=== PATIENT | female | born 1940 | race Caucasian/White ===

== ENCOUNTER 2016-10-29 20:19 | Inpatient (IN) | payer MEDICARE, BC ==
--- NOTE | ~2016-10-29 | EGD ---
EGD REPORT [facility] [address] [place] [address] NAME: RADHA BARRON : [birth year] STATUS : ADM IN PAT#: [id number] AGE: 76 ADM/REG DATE : 10/30/16 MR#: [id number] REPORT SERV DATE: 11/02/16 DICTATED BY: MILLICENT GUTHRIE DATE: 11/02/16 REPORT STATUS : Draft TRANSCRIBED BY: [employer] DATE: 11/02/16 [facility] Center Patient Name: Radha Barron Date of : 1940 Attending MD: MILLICENT GUTHRIE, Procedure Date No Time: 11/02/2016 Procedure: Colonoscopy Indications: This is the patient's first colonoscopy, Abnormal CT of the GI tract Medicines: Propofol per Anesthesia Complications: No immediate complications. Estimated blood loss: None. Procedure: Pre-Anesthesia Assessment: - ASA Grade Assessment: III - A patient with severe systemic disease. After I obtained informed consent, the scope was passed under direct vision. Throughout the procedure, the patient's blood pressure, pulse, and oxygen saturations were monitored continuously. The PCF H190L [id number] was introduced through the anus and advanced to the terminal ileum. The colonoscopy was performed with ease. The patient tolerated the procedure well. The quality of the bowel preparation was good. Findings: The perianal exam was abnormal. Findings include skin tags. The terminal ileum appeared normal. Three polyps were found in the ascending colon. The polyps were 3 mm in size. These polyps were removed with a cold biopsy forceps. Resection and retrieval were complete. Estimated blood loss: none. A fungating non-obstructing large mass was found in the ascending colon. The mass was partially circumferential (involving one-half of the lumen circumference). The mass measured four cm in length. No bleeding was present. Biopsies were taken with a cold forceps for histology. Estimated blood loss was minimal. Area was successfully injected with 4 mL Spot (carbon black) for tattooing. Estimated blood loss: none. A sessile polyp was found in the sigmoid colon. The polyp was 5 mm in size. The polyp was removed with a cold snare. Resection and retrieval were complete. Estimated blood loss: none. Severe diffuse melanosis was found in the entire colon. Impression: - Perianal skin tags found on perianal exam. - The examined portion of the ileum was normal. - Three 3 mm polyps in the ascending colon. Resected and retrieved. - Likely malignant tumor in the ascending colon. EGD REPORT [address] [place]. [address] NAME: RADHA BARRON : [birth year] STATUS : ADM IN [facility]#: [id number] AGE: 76 ADM/REG DATE : 10/30/16 MR#: [id number] REPORT SERV DATE: 11/02/16 DICTATED BY: MILLICENT GUTHRIE DATE: 11/02/16 REPORT STATUS : Draft TRANSCRIBED BY: Flux DATE: 11/02/16 Biopsied. Biopsied. Injected. - One 5 mm polyp in the sigmoid colon. Resected and retrieved. - Melanosis in the colon. Recommendation: - [facility]. - Regular diet. - Continue present medications. - Await pathology results. Procedure Code(s): --- Professional --- 13970, Colonoscopy, flexible, proximal to splenic flexure; with removal of tumor(s), polyp(s), or other lesion(s) by snare technique 71548, 59, Colonoscopy, flexible, proximal to splenic flexure; with biopsy, single or multiple 45679, Colonoscopy, flexible, proximal to splenic flexure; with directed submucosal injection(s), any substance Diagnosis Code(s): --- Professional --- K64.4, Residual hemorrhoidal skin tags D12.5, Benign neoplasm of sigmoid colon D12.2, Benign neoplasm of ascending colon D49.0, Neoplasm of unspecified behavior of digestive system K63.89, Other specified diseases of intestine R93.3, Abnormal findings on diagnostic imaging of other parts of digestive tract CPT copyright 2013 [employer]. All rights reserved. The codes documented in this report are preliminary and upon hcc coders review may be revised to meet current compliance requirements. MILLICENT GUTHRIE, 11/02/2016 12:32 PM This report has been signed electronically. Number of Addenda: 0 Note Initiated On: 11/02/2016 11:32 AM Scope Withdrawal Time 0 hours 21 minutes 44 seconds [address] [phone]
--- NOTE | ~2016-10-29 | EGD ---
EGD REPORT [facility] [address] [place] [address] NAME: RADHA BARRON : [birth year] STATUS : DIS IN PAT#: [id number] AGE: 76 ADM/REG DATE : 10/30/16 MR#: [id number] REPORT SERV DATE: 11/08/16 DICTATED BY: MILLICENT GUTHRIE DATE: 11/08/16 REPORT STATUS : Draft TRANSCRIBED BY: [employer] DATE: 11/08/16 Endoscopy Center Patient Name: Radha Barron Date of : 1940 Attending MD: MILLICENT GUTHRIE, Procedure Date No Time: 11/02/2016 Procedure: Colonoscopy Indications: This is the patient's first colonoscopy, Abnormal CT of the GI tract Medicines: Propofol per Anesthesia Complications: No immediate complications. Estimated blood loss: None. Procedure: Pre-Anesthesia Assessment: - ASA Grade Assessment: III - A patient with severe systemic disease. After I obtained informed consent, the scope was passed under direct vision. Throughout the procedure, the patient's blood pressure, pulse, and oxygen saturations were monitored continuously. The PCF H190L [id number] was introduced through the anus and advanced to the terminal ileum. The colonoscopy was performed with ease. The patient tolerated the procedure well. The quality of the bowel preparation was good. Findings: The perianal exam was abnormal. Findings include skin tags. The terminal ileum appeared normal. Three polyps were found in the ascending colon. The polyps were 3 mm in size. These polyps were removed with a cold biopsy forceps. Resection and retrieval were complete. Estimated blood loss: none. A fungating non-obstructing large mass was found in the ascending colon. The mass was partially circumferential (involving one-half of the lumen circumference). The mass measured four cm in length. No bleeding was present. Biopsies were taken with a cold forceps for histology. Estimated blood loss was minimal. Area was successfully injected with 4 mL Spot (carbon black) for tattooing. Estimated blood loss: none. A sessile polyp was found in the sigmoid colon. The polyp was 5 mm in size. The polyp was removed with a cold snare. Resection and retrieval were complete. Estimated blood loss: none. Severe diffuse melanosis was found in the entire colon. Impression: - Perianal skin tags found on perianal exam. - The examined portion of the ileum was normal. - Three 3 mm polyps in the ascending colon. Resected and retrieved. - Likely malignant tumor in the ascending colon. EGD REPORT [address] [place]. [address] NAME: RADHA BARRON : [birth year] STATUS : DIS IN PAT#: [id number] AGE: 76 ADM/REG DATE : 10/30/16 MR#: [id number] REPORT SERV DATE: 11/08/16 DICTATED BY: MILLICENT GUTHRIE DATE: 11/08/16 REPORT STATUS : Draft TRANSCRIBED BY: [employer] DATE: 11/08/16 Biopsied. Biopsied. Injected. - One 5 mm polyp in the sigmoid colon. Resected and retrieved. - Melanosis in the colon. Recommendation: - [facility] for [facility] care. - Regular diet. - Continue present medications. - Await pathology results. Procedure Code(s): --- Professional --- 68530, Colonoscopy, flexible, proximal to splenic flexure; with removal of tumor(s), polyp(s), or other lesion(s) by snare technique 91644, 59, Colonoscopy, flexible, proximal to splenic flexure; with biopsy, single or multiple 87280, Colonoscopy, flexible, proximal to splenic flexure; with directed submucosal injection(s), any substance Diagnosis Code(s): --- Professional --- K64.4, Residual hemorrhoidal skin tags D12.5, Benign neoplasm of sigmoid colon D12.2, Benign neoplasm of ascending colon D49.0, Neoplasm of unspecified behavior of digestive system K63.89, Other specified diseases of intestine R93.3, Abnormal findings on diagnostic imaging of other parts of digestive tract CPT copyright 2013 [employer]. All rights reserved. The codes documented in this report are preliminary and upon manager of case management review may be revised to meet current compliance requirements. MILLICENT GUTHRIE, 11/02/2016 12:32 PM This report has been signed electronically. Number of Addenda: 0 Note Initiated On: 11/02/2016 11:32 AM Scope Withdrawal Time 0 hours 21 minutes 44 seconds [address] [id number]
--- NOTE | ~2016-10-29 | CN ---
Consultation Report [facility] [address] [place]. [address] NAME: RADHA BARRON : [birth year] STATUS : ADM IN [facility]#: [id number] AGE: 76 ADM/REG DATE : 10/30/16 MR#: [id number] REPORT SERV DATE: 11/02/16 DICTATED BY: MARILUZ CALDERA III DATE: 11/01/16 REPORT STATUS : Draft TRANSCRIBED BY: ANGELO DATE: 11/01/16 CONSULTATION DATE OF CONSULTATION: 11/01/2016 REASON FOR CONSULTATION: Metastatic cancer. HISTORY OF PRESENT ILLNESS: Ms. Barron is a 76-year-old female, who presented to the emergency department on Sunday with chest pain. This was concerning for pulmonary embolism, and she underwent a CTA of her chest, which did not reveal any pulmonary embolism, but did show lytic lesions to the thoracic spine as well as nodules within her liver concerning for metastatic cancer. She was admitted for further workup and care. She states she has really felt very well since her chest pain has stopped. She has not noted any recent fevers, chills, or night sweats. She denies any recent weight loss. She has been more fatigued recently with more difficulty performing her normal outdoor activities. She denies ever having a colonoscopy. PAST MEDICAL HISTORY: Significant for hypertension and hemorrhoids. FAMILY HISTORY: Significant for her mother having colon cancer in her late 60s. SOCIAL HISTORY: Negative for any tobacco or alcohol or drug use. She lives in [place], [place] with family nearby. ALLERGIES: THERE ARE NO KNOWN DRUG ALLERGIES. HOME MEDICATION: Negative for any medicines. REVIEW OF SYSTEMS: A comprehensive review of systems was performed and is negative unless noted in the HPI. PHYSICAL EXAMINATION: VITAL SIGNS: Blood pressure is 127/72, temperature is 97.4, pulse is 94, respirations 20. GENERAL: A well-developed, well-nourished female, in no acute distress. EYES: Pupils are round and reactive to light. Extraocular muscles are intact. Oropharynx is pink and moist. NECK: Supple with no masses or thyroid enlargement. No JVD. CARDIOVASCULAR: Regular rate and rhythm with no audible murmurs. LUNGS: Clear to auscultation bilaterally. ABDOMEN: Soft, nondistended, nontender. Positive bowel sounds with no hepatosplenomegaly. SKIN: Warm and dry with good skin turgor. No jaundice. PSYCH: She is alert and oriented, comprehends our conversation with normal judgment and affect. Consultation Report [facility] [address] [place]. [address] NAME: RADHA BARRON : [birth year] STATUS : ADM IN PAT#: [id number] AGE: 76 ADM/REG DATE : 10/30/16 MR#: [id number] REPORT SERV DATE: 11/02/16 DICTATED BY: MARILUZ CALDERA III DATE: 11/01/16 REPORT STATUS : Draft TRANSCRIBED BY: ANGELO DATE: 11/01/16 IMAGING: Personally reviewed with findings as above. ASSESSMENT AND PLAN: Likely metastatic colon cancer. We will await final pathology. Colonoscopy is planned for in the morning. From standpoint, it is okay to discharge her home tomorrow if the procedure is not really feel any evidence of obstruction. I will continue to follow Ms. Barron while she is inpatient and arrange outpatient followup upon discharge. DANNY/ANGELO Mariluz Caldera III, M.D. / [id number] CC: MD Denisse Chavez II, M.D.
--- NOTE | ~2016-10-29 | CN ---
Consultation Report [facility] [address] [place]. [address] NAME: RADHA BARRON : [birth year] STATUS : DIS IN PAT#: [id number] AGE: 76 ADM/REG DATE : 10/30/16 MR#: [id number] REPORT SERV DATE: 11/20/16 DICTATED BY: MILLICENT LORA DATE: 11/20/16 REPORT STATUS : Draft TRANSCRIBED BY: MODL DATE: 11/20/16 GI CONSULTATION DATE OF CONSULTATION: 10/30/2016 REASON FOR CONSULTATION: Chest pain and anemia. HISTORY OF PRESENT ILLNESS: Ms. Barron is a 76-year-old female with a history of hypertension who presented with chest pain to [facility]. CT angio is negative for PE. Hemoglobin and hematocrit are 9.7 and 29.9, platelets 225. INR is 1.2. CEA is 45.7. Iron is 18. Iron saturation is low at 7. TIBC is 252. She does have a family history of stomach cancer in her grandmother. PAST MEDICAL HISTORY: Hypertension, hemorrhoids, and recent FOB positive. PAST SURGICAL HISTORY: D and C, cyst aspiration, and breast biopsy. FAMILY HISTORY: Coronary artery disease and stomach cancer in her grandmother. MEDICATIONS: Reviewed. ALLERGIES: REVIEWED. PHYSICAL EXAMINATION: VITAL SIGNS: The patient is afebrile. Vital signs are stable. GENERAL: The patient is elderly female, in no acute distress. HEENT: Atraumatic, normocephalic. Anicteric. Mucous membranes are moist. CARDIAC: S1, S2. CHEST: Clear. ABDOMEN: Soft, nontender, and nondistended. Bowel sounds normoactive. LABORATORY DATA: WBC 6.2, hemoglobin 9.7, hematocrit 29.9, platelets 225. INR is 1.2. CMP is normal. CEA 45.7. Iron studies as dictated above. IMPRESSION AND PLAN: Chest pain, unclear etiology. Although the patient does have what appears to be iron-deficiency anemia, I would like to make sure that her chest pain is evaluated from a cardiology standpoint before pursuing any endoscopic evaluation for peptic ulcer disease, gastritis, esophagitis, etc. We will continue to follow with you. Continue PPI and monitor for any signs of overt GI bleed. DARRIN/ANGELO Consultation Report [place] [id number] [place]. [address] NAME: RADHA BARRON : [birth year] STATUS : DIS IN PAT#: [id number] AGE: 76 ADM/REG DATE : 10/30/16 MR#: [id number] REPORT SERV DATE: 11/20/16 DICTATED BY: MILLICENT LORA DATE: 11/20/16 REPORT STATUS : Draft TRANSCRIBED BY: ANGELO DATE: 11/20/16 Millicent Lora MD / [id number] CC: MD Denisse Chavez II, M.D.
--- NOTE | ~2016-10-29 | HP ---
History And Physical [place] [id number] [facility] [place]. [address] NAME: RADHA BARRON : [birth year] STATUS : ADM IN [facility]#: [id number] AGE: 76 ADM/REG DATE : 10/30/16 MR#: [id number] REPORT SERV DATE: 10/30/16 DICTATED BY: GOPI BOWLING DATE: 10/30/16 REPORT STATUS : Draft TRANSCRIBED BY: ANGELO DATE: 10/30/16 DATE OF ADMISSION: 10/30/2016 CHIEF COMPLAINT: Chest pain. HISTORY OF PRESENT ILLNESS: A 76 years old female, who came to the ER with the complaint of chest pain, described more or so pressure like at the midsternal that radiates down to the epigastric area that lasted for approximately an hour while the patient was ambulating. She denied any shortness of breath. No nausea or vomiting. No diaphoresis. The patient was seen in the emergency department, seen by Dr. Francis Pimentel. She had a CTA of the chest that ruled out PE, but did have an incidental finding of some lytic lesion to the thoracic spine as well as some metastatic lesions in the liver, and the Hospitalist was called to admit the patient to the hospital. Ms. Barron does not follow up regularly with a primary care; however, her last primary care was Dr. wKan, who is currently retired. She has had a mammogram before in the past, but over more than five years ago and she has never had a colonoscopy. Currently, she denies any chest pain at this time and is unsure of any weight loss. She has had decreased oral intake for the past two weeks. No cough. The patient has a friend at bedside and for which the patient gets permission to ask questions and received information. REVIEW OF SYSTEMS: Please refer to HPI. PAST MEDICAL HISTORY: Hypertension, hemorrhoids, and a history of positive stool Hemoccult in the past. PAST SURGICAL HISTORY: D and C, cyst aspiration/breast biopsy which was benign according to the patient. FAMILY HISTORY: Coronary artery disease, stomach cancer in grandmother. SOCIAL HISTORY: No tobacco, alcohol, or illicit drugs. Currently retired. Usually very active. ALLERGIES: NO KNOWN ALLERGIES, BUT HAS AN ADVERSE REACTION TO CODEINE CAUSES NAUSEA AND VOMITING. HOME MEDICATIONS: No medications. PHYSICAL EXAMINATION: VITAL SIGNS: Temp of 98.6, blood pressure 157/70 with a pulse of 82, respiration of 18, and saturating 95% on room air. GENERAL: The patient is alert and oriented x3. HEENT: Pupils equal, round, and reactive to light. Extraocular muscles are intact. Moist mucous membranes. History And Physical [address] [place]. [address] NAME: RADHA BARRON : [birth year] STATUS : ADM IN [facility]#: [id number] AGE: 76 ADM/REG DATE : 10/30/16 MR#: [id number] REPORT SERV DATE: 10/30/16 DICTATED BY: GOPI BOWLING DATE: 10/30/16 REPORT STATUS : Draft TRANSCRIBED BY: ANGELO DATE: 10/30/16 CARDIOVASCULAR: S1, S2. Regular rate and rhythm. No murmurs, rubs, or gallops. No JVD. RESPIRATORY: Clear to auscultation bilaterally. No wheezes or crackles. No signs of tachypnea. ABDOMEN: Positive bowel sounds. Soft, nontender. No rebound. No fluid wave. No distention. EXTREMITIES: 2+ pulse bilaterally. No edema. NEURO: Cranial nerves 2 through 12 grossly intact. Moves all four extremities. No neuro focal deficits. LABORATORY DATA: Sodium 143, potassium 3.9, chloride of 106, bicarb of 29, BUN of 9, creatinine is 0.47 with a glucose of 93, magnesium at 2.4, troponin less than 0.02. White count of 6.2 with a hemoglobin of 9.7, platelet count of 225 INR of 1.2. EKG normal sinus rhythm, no ST elevation. ASSESSMENT AND PLAN: 1. Chest pain. 2. Metastatic disease to the thoracic spine and liver metastases. 3. History of hypertension. 4. History of positive stool Hemoccult in the past. The patient will be admitted to Dr. Kyler Henriquez, with a GI consultation and Hematology/Oncology consultation. However, in the interim, we will rule out for any cardiac event with serial troponins and also cardiac stress test. Also, we would check a stool Hemoccult, and the patient has not had a colonoscopy before in the past, although recommend. Also would check LFTs and CEA and check iron studies. The patient will be followed by Dr. Kyler Henriquez, who will be the attending for this patient's care. GARRETT/ANGELO Gopi Bowling M.D. / [id number] CC: Karina Madrigal M.D.
--- NOTE | ~2016-10-29 | DS ---
Discharge Summary [facility] [address] [place]. [address] NAME: RADHA SOFIA : 42 STATUS : DIS IN PAT#: [id number] AGE: 76 ADM/REG DATE : 10/30/16 MR#: [id number] REPORT SERV DATE: 11/03/16 DICTATED BY: JAREK ALEJANDRO II DATE: 11/02/16 REPORT STATUS : Draft TRANSCRIBED BY: ANGELO DATE: 11/02/16 ADMISSION DATE: 10/30/2016 DISCHARGE DATE: 11/02/2016 DISCHARGE DIAGNOSES: 1. 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 2. 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 3. History of hypertension. CONSULTS: Dr. Arellano. PROCEDURE: Liver biopsy and colonoscopy. BRIEF HISTORY OF PRESENT ILLNESS: The patient is a 76-year-old female with the above history who presented to [facility] due to chest pain. For detailed history and physical examination, please see Dr. Yeboah's note from 10/30/2016. HOSPITAL COURSE: On admission, the patient had complaints of chest pain and a CTA of the chest was done which showed no pulmonary embolus or active pulmonary disease. However, it did show multifocal hypodense solid appearing liver lesions, highly suspicious for liver metastatic disease as well as heterogeneous lucency to the T1 vertebra raising suspicion for lytic metastatic disease. A CT of abdomen and pelvis was done which showed numerous low- density lesions throughout the liver with maximum diameter of 4 cm consistent with metastatic disease. There is also a circumferential thickening of the ascending colon concerning for colon carcinoma, no bowel obstruction. Colonoscopy was performed by Dr. Lora which showed a likely malignant tumor in the ascending colon which was biopsied and preliminary result is suspicious for malignancy. Liver biopsy was actually finalized and showing adenocarcinoma likely of colonic origin. Otherwise, the patient has a hemoglobin of 10 with iron of 18 and iron sat of 7 with a ferritin of 26 consistent with iron deficiency. We will start her on ferrous sulfate. Dr. Arellano will follow next week once all the results are in from the colon biopsy as well. DISCHARGE MEDICATIONS: Ferrous sulfate 300 mg p.o. t.i.d. DISCHARGE INSTRUCTIONS: Follow Dr. Arellano next week. ASHWIN/ANGELO Jarek Alejandro II, MD / [id number] Discharge Summary [place] [address] [place]. [address] NAME: RADHA SOFIA : 42 STATUS : DIS IN PAT#: [id number] AGE: 76 ADM/REG DATE : 10/30/16 MR#: [id number] REPORT SERV DATE: 11/03/16 DICTATED BY: JAREK ALEJANDRO II DATE: 11/02/16 REPORT STATUS : Draft TRANSCRIBED BY: ANGELO DATE: 11/02/16 CC: MD Denisse Chavez II, M.D.
[2016-10-29 21:25] LABS: BASOPHILS 0.2 %; BASOPHILS ABSOLUTE 0.01 10/3/uL (0.0-0.16); EOSINOPHILS 2.9 %; EOSINOPHILS ABSOLUTE 0.18 10/3/uL (0.0-0.53); HEMATOCRIT 29.9 % (36.0-48.0); HEMOGLOBIN 9.7 g/dL (12.0-16.0); IMMATURE GRANULOCYTES 0.2 %; IMMATURE GRANULOCYTES ABSOLUTE 0.01 10/3/uL (0.0-0.11); LYMPHOCYTES 17.2 %; LYMPHOCYTES ABSOLUTE 1.07 10/3/uL (0.67-4.30); MANUAL DIFF NO %; MEAN CORPUS HGB CONC 32.4 g/dL (32.0-36.0); MEAN CORPUSCULAR HEMOGLOB 26.1 pg (26.0-34.0); MEAN CORPUSCULAR VOLUME 80.4 fL (80-100); MEAN PLATELET VOLUME 11.5 fL (9.2-13.0); MONOCYTES 14.6 %; MONOCYTES ABSOLUTE 0.91 10/3/uL (0.21-1.20); NEUTROPHILS 64.9 %; NEUTROPHILS ABSOLUTE 4.05 10/3/uL (2.02-8.40); PLATELET COUNT 225 10/3/uL (150-400); RBC DISTRIBUTION WIDTH 13.6 % (12.0-16.0); RED CELL COUNT 3.72 10/6/uL (4.0-5.6); WHITE BLOOD CELLS 6.2 10/3/uL (4.5-10.5)
[2016-10-29 21:42] LABS: BUN (BLOOD UREA NITROGEN) 9 MG/DL (6-23); CALCIUM, SERUM 8.3 MG/DL (8.5-10.4); CHEST PAIN PROFILE TAT 0 Hrs 21 Mins; CHLORIDE, SERUM 106 MMOL/L (96-112); CO2 (CARBON DIOXIDE) 29 MMOL/L (24-34); CREATININE 0.47 MG/DL (0.55-1.02); GFR AFRICAN AMERICAN 112 ML/MIN (>=60); GFR NON AFRICAN AMERICAN 97 ML/MIN (>=60); GLUCOSE, SERUM 93 MG/DL (60-99); POTASSIUM, SERUM 3.9 MMOL/L (3.5-5.3); SODIUM, SERUM 143 MMOL/L (135-148); TROPONIN I <0.02 NG/ML (<0.05)
[2016-10-29 22:07] LABS: INTERNATIONAL NORMAL RATI 1.2 UNITS (-); PARTIAL THROMBO TIME 35.3 SEC (22.5-37.2); PROTIME (NOT ORD) 14.9 SEC (12.0-14.5)
[2016-10-30] MEDS ORDERED: DENIES (00:17)
[2016-10-30 07:06] LABS: % IRON SAT 7 % (20-50); BUN (BLOOD UREA NITROGEN) 6 MG/DL (6-23); CALCIUM, SERUM 8.7 MG/DL (8.5-10.4); CHLORIDE, SERUM 111 MMOL/L (96-112); CO2 (CARBON DIOXIDE) 27 MMOL/L (24-34); CPK 118 U/L (0-200); CREATININE 0.51 MG/DL (0.55-1.02); FERRITIN 26 NG/ML (8-252); GFR AFRICAN AMERICAN 109 ML/MIN (>=60); GFR NON AFRICAN AMERICAN 94 ML/MIN (>=60); GLUCOSE, SERUM 89 MG/DL (60-99); IRON BINDING CAPACITY 252 MCG/DL (225-410); IRON, SERUM 18 MCG/DL (35-150); POTASSIUM, SERUM 4.2 MMOL/L (3.5-5.3); SGOT(AST) 37 U/L (5-40); SGPT(ALT) 17 U/L (5-65); SODIUM, SERUM 146 MMOL/L (135-148); TOTAL BILIRUBIN 0.4 MG/DL (0-1.2); TOTAL PROTEIN 6.8 G/DL (6.0-8.5); TROPONIN I <0.02 NG/ML (<0.05)
[2016-10-30 07:10] LABS: A/G RATIO 0.9 (0.7-1.9); ALBUMIN 3.2 G/DL (3.5-5.0); ALKALINE PHOSPHATASE 80 U/L (45-117); CEA 45.7 NG/ML; GLOBULIN 3.6 G/DL (2.5-4.1)
[2016-10-30 13:55] LABS: CK-MB 1.4 NG/ML; CPK 109 U/L (0-200); TROPONIN I <0.02 NG/ML (<0.05)
[2016-10-31 04:12] LABS: BASOPHILS 0.2 %; BASOPHILS ABSOLUTE 0.01 10/3/uL (0.0-0.16); EOSINOPHILS ABSOLUTE 0.29 10/3/uL (0.0-0.53); HEMATOCRIT 31.2 % (36.0-48.0); HEMOGLOBIN 9.8 g/dL (12.0-16.0); IMMATURE GRANULOCYTES 0.2 %; IMMATURE GRANULOCYTES ABSOLUTE 0.01 10/3/uL (0.0-0.11); LYMPHOCYTES ABSOLUTE 1.33 10/3/uL (0.67-4.30); MEAN CORPUS HGB CONC 31.4 g/dL (32.0-36.0); MEAN CORPUSCULAR HEMOGLOB 25.6 pg (26.0-34.0); MEAN CORPUSCULAR VOLUME 81.5 fL (80-100); MEAN PLATELET VOLUME 12.1 fL (9.2-13.0); MONOCYTES 16.4 %; MONOCYTES ABSOLUTE 0.95 10/3/uL (0.21-1.20); NEUTROPHILS 55.2 %; NEUTROPHILS ABSOLUTE 3.19 10/3/uL (2.02-8.40); PLATELET COUNT 241 10/3/uL (150-400); RBC DISTRIBUTION WIDTH 13.9 % (12.0-16.0); RED CELL COUNT 3.83 10/6/uL (4.0-5.6); WHITE BLOOD CELLS 5.8 10/3/uL (4.5-10.5)
[2016-10-31 04:14] LABS: MANUAL DIFF NO %
[2016-10-31 04:19] LABS: INTERNATIONAL NORMAL RATI 1.3 UNITS (-); PARTIAL THROMBO TIME 43.7 SEC (22.5-37.2); PROTIME (NOT ORD) 15.6 SEC (12.0-14.5)
[2016-10-31 12:28] LABS: MAX AMP (ADP) 66.2 MM (35-68); TEG - ANGLE 76.9 DEG (53-72); TEG - COAGULATION INDEX 3.4 (-3 TO 3); TEG - MAXIMUM AMPLITUDE 76.7 MM (50-70); TEG - RATE 5.6 MIN (5.0-10.0); TEG PLAVIX/EFFIENT/TICLID(ADP) 21.1 % INHIB (< 40)
[2016-11-01 06:38] LABS: BASOPHILS 0 %; EOSINOPHILS 0.2 %; EOSINOPHILS ABSOLUTE 0.02 10/3/uL (0.0-0.53); HEMATOCRIT 32.9 % (36.0-48.0); HEMOGLOBIN 10.4 g/dL (12.0-16.0); IMMATURE GRANULOCYTES 0.1 %; IMMATURE GRANULOCYTES ABSOLUTE 0.01 10/3/uL (0.0-0.11); LYMPHOCYTES 11.2 %; MEAN CORPUS HGB CONC 31.6 g/dL (32.0-36.0); MEAN CORPUSCULAR HEMOGLOB 25.7 pg (26.0-34.0); MEAN CORPUSCULAR VOLUME 81.2 fL (80-100); MEAN PLATELET VOLUME 12.6 fL (9.2-13.0); MONOCYTES 10.2 %; MONOCYTES ABSOLUTE 0.91 10/3/uL (0.21-1.20); NEUTROPHILS 78.3 %; NEUTROPHILS ABSOLUTE 6.98 10/3/uL (2.02-8.40); PLATELET COUNT 272 10/3/uL (150-400); RBC DISTRIBUTION WIDTH 14.1 % (12.0-16.0); RED CELL COUNT 4.05 10/6/uL (4.0-5.6)
[2016-11-01 06:40] LABS: MANUAL DIFF NO %; WHITE BLOOD CELLS 8.9 10/3/uL (4.5-10.5)
[2016-11-01 06:51] LABS: BUN (BLOOD UREA NITROGEN) 11 MG/DL (6-23); CALCIUM, SERUM 8.8 MG/DL (8.5-10.4); CHLORIDE, SERUM 102 MMOL/L (96-112); CO2 (CARBON DIOXIDE) 27 MMOL/L (24-34); CREATININE 0.45 MG/DL (0.55-1.02); GFR AFRICAN AMERICAN 114 ML/MIN (>=60); GFR NON AFRICAN AMERICAN 98 ML/MIN (>=60); GLUCOSE, SERUM 96 MG/DL (60-99); POTASSIUM, SERUM 4.1 MMOL/L (3.5-5.3); SODIUM, SERUM 140 MMOL/L (135-148)
[2016-11-02] MEDS ORDERED: FESO4 PO (15:12)
== END 2016-11-02 16:20 | disposition home or self-care (01) | DRG 375 ==
LOC: ER 20:19 → 7NO 10-30 01:18
PROVIDERS: Hospitalist; Internal Medicine; Internal Medicine Gastroenterology; Radiology Vascular & Interventional Radiology
PROC: 0FB03ZX Excision of Liver, Percutaneous Approach, Diagnostic (ICD-10-PCS; 2016-10-31)
PROC: 0DBK8ZX Excision of Ascending Colon, Via Natural or Artificial Opening Endoscopic, Diagnostic (ICD-10-PCS; principal; 2016-11-02 12:00)
DX: C18.2 Malignant neoplasm of ascending colon (principal); C78.7 Secondary malignant neoplasm of liver and intrahepatic bile duct; C79.51 Secondary malignant neoplasm of bone; R07.9 Chest pain, unspecified; I10 Essential (primary) hypertension; D50.9 Iron deficiency anemia, unspecified; D12.5 Benign neoplasm of sigmoid colon
CPT/HCPCS: 47000; 71010; 71275; 74176; 77012; 78452; 80048; 80053; 82378; 82550; 82553; 82728; 83540; 83550; 83735; 84484; 85025; 85347; 85384; 85576; 85576-59; 85610; 85730; 88305; 88307; 88333; 88341; 88342; 93005; 93017; 99285; A9270-GY; A9502; J1170; J2405; Q9967